=== PATIENT | male | born 1985 | race Two or more races ===

== ENCOUNTER 2020-08-09 00:29 | Emergency (ER) | payer OTHER ==
[~2020-08-09] VITALS: Ht 185.4 cm; Wt 77.1 kg
[2020-08-09] MEDS ORDERED: INTESTINEX680 M2 PO (06:49)
[2020-08-09] MEDS ORDERED: VITAMIN C500 M5 PO (06:49)
[2020-08-09] MEDS ORDERED: 8 HOUR650 MG PO (06:49)
== END 2020-08-09 07:37 | disposition home or self-care (01) ==
LOC: ER 00:29
DX: A90 Dengue fever [classical dengue] (principal); B34.9 Viral infection, unspecified